=== PATIENT | female | born 1970 | race Caucasian/White ===

== ENCOUNTER 2018-03-31 16:53 | Emergency (ER) | payer BC ==
[~2018-03-31] VITALS: Ht 591.1 cm; Wt 113.8 kg
[2018-03-31] MEDS ORDERED: SERT50TA PO (17:41)
[2018-03-31] MEDS ORDERED: LEVO25TA2 PO (17:41)
[2018-03-31] MEDS ORDERED: LOSA25TA96 PO (17:41)
[2018-03-31] MEDS ORDERED: acetaminophen 325mg tablet PO ONE (18:10)
[2018-03-31] MEDS ORDERED: LIDOcaine 1%/PF 5ML 10 MG/ML VIAL IJ ONE (19:40)
[2018-03-31] MEDS ORDERED: TETanus/Pertussis (Acell)/Diphther VAC/PF (Tdap-Adult) 0.5ml syringe IMVAC ONE (19:40)
[2018-03-31] MEDS ORDERED: IBUP-1984 PO (20:38)
[2018-03-31] MEDS ORDERED: HYDR-565 PO (20:38)
[2018-03-31] MEDS ORDERED: HYDROcodone/acetaminophen 10/325mg tab PO ONE (20:40)
[2018-03-31] MEDS ORDERED: CEPH500C5 PO (21:17)
[2018-03-31 21:21] VITALS: BP 127/89
== END 2018-03-31 21:30 | disposition home or self-care (01) ==
LOC: ER 16:54
DX: S42.402A Unspecified fracture of lower end of left humerus, initial encounter for closed fracture (principal); S51.012A Laceration without foreign body of left elbow, initial encounter; Z88.2 Allergy status to sulfonamides; Z88.5 Allergy status to narcotic agent; Z91.040 Latex allergy status; Z79.899 Other long term (current) drug therapy; W01.0XXA Fall on same level from slipping, tripping and stumbling without subsequent striking against object, initial encounter; Y93.01 Activity, walking, marching and hiking; Y92.89 Other specified places as the place of occurrence of the external cause; Y99.8 Other external cause status
CPT/HCPCS: 12001; 73080; 90471; 90715; 99284; A4565; J2001; A6449